=== PATIENT | male | born 1990 | race Caucasian/White ===

== ENCOUNTER 2018-02-18 11:33 | Emergency (ER) | payer MEDICAID ==
[~2018-02-18] VITALS: Ht 180.3 cm; Wt 127.3 kg
[2018-02-18 11:34] VITALS: BP 133/74; PULSE 80; RESP 19; Ht 180.3 cm; Wt 127.3 kg
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
[2018-02-18] MEDS ORDERED: NAPR-985 PO (14:54)
== END 2018-02-18 15:36 | disposition home or self-care (01) ==
LOC: FTE 11:33
DX: R07.89 Other chest pain (principal)
CPT/HCPCS: 71045; 80053; 84484; 85025; 93005; Z7502

== ENCOUNTER 2018-09-23 21:59 | Emergency (ER) | payer MEDICAID ==
[~2018-09-23] VITALS: Ht 181.6 cm; Wt 136.1 kg
[~2018-09-23 21:59] MED LIST: IBUP-1542 PO; NAPR-985 PO
[2018-09-23 22:10] VITALS: Ht 181.6 cm; Wt 136.1 kg
[2018-09-23] MEDS ORDERED: KETOROLAC 30 MG INJ IM STA (23:25)
[2018-09-24 01:52] VITALS: BP 125/76; PULSE 73; RESP 18
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
== END 2018-09-24 01:53 | disposition home or self-care (01) ==
LOC: FTE 21:59
DX: S20.212A Contusion of left front wall of thorax, initial encounter (principal); V87.7XXA Person injured in collision between other specified motor vehicles (traffic), initial encounter
CPT/HCPCS: 71100; 96372; J1885; Z7502